=== PATIENT | female | born 1990 | race African-American/Black ===

== ENCOUNTER 2018-07-22 19:33 | Emergency (ER) | payer OTHER ==
[~2018-07-22] VITALS: Ht 157.5 cm; Wt 74.8 kg
[2018-07-22 20:54] VITALS: BP 133/75
[2018-07-22] MEDS ORDERED: BACTRIM DS TAB1 EACH PO (20:54)
== END 2018-07-22 20:55 | disposition home or self-care (01) ==
LOC: ER 19:33
DX: L02.416 Cutaneous abscess of left lower limb (principal); Z88.1 Allergy status to other antibiotic agents